=== PATIENT | male | born 1960 | race Caucasian/White ===

== ENCOUNTER 2019-06-04 17:58 | Emergency (ER) | payer MEDICARE, MEDICAID ==
[~2019-06-04] VITALS: Ht 188 cm; Wt 84.1 kg
[2019-06-04] MEDS ORDERED: TETanus/Pertussis (Acell)/Diphther VAC/PF (Tdap-Adult) 0.5ml syringe IM ONE (18:25)
[2019-06-04] MEDS ORDERED: IBUP-1985 PO (18:31)
[2019-06-04] MEDS ORDERED: CEPH500C5 PO (18:31)
[2019-06-04 19:13] VITALS: BP 117/69
== END 2019-06-04 19:17 | disposition home or self-care (01) ==
LOC: ER 17:58
DX: S61.412A Laceration without foreign body of left hand, initial encounter (principal); G89.29 Other chronic pain; F17.200 Nicotine dependence, unspecified, uncomplicated; Z88.1 Allergy status to other antibiotic agents; Z88.6 Allergy status to analgesic agent; W22.8XXA Striking against or struck by other objects, initial encounter; Y93.89 Activity, other specified; Y92.89 Other specified places as the place of occurrence of the external cause; Y99.8 Other external cause status
CPT/HCPCS: 29130; 73130; 90471; 99283

== ENCOUNTER 2023-11-26 16:34 | Emergency (ER) | payer MEDICARE, MEDICAID ==
[~2023-11-26] VITALS: Ht 188 cm; Wt 82.7 kg
[~2023-11-26 16:34] MED LIST: IBUP-1985 PO
[2023-11-26 16:53] VITALS: BP 134/81; PULSE 78; RESP 18; TEMP 97.8; O2SAT 98
== END 2023-11-26 17:56 | disposition home or self-care (01) ==
LOC: ER 16:36
DX: F22 Delusional disorders (principal); G89.29 Other chronic pain; M54.9 Dorsalgia, unspecified; Z79.899 Other long term (current) drug therapy
CPT/HCPCS: 99281